=== PATIENT | female | born 1965 | race Caucasian/White ===

== ENCOUNTER → 2017-10-03 | Outpatient (CLI) | payer BC ==
[~2017-10-03] VITALS: Ht 165.1 cm; Wt 77.1 kg
[~2017-10-03] MED LIST: ADVIL200 MG PO; VITAMIN D-32000 UNI2 PO; WOMEN'S DAILY1 EAC4 PO
== END | disposition home or self-care (01) ==
LOC: AMB 08:00
PROC: 0DJD8ZZ Inspection of Lower Intestinal Tract, Via Natural or Artificial Opening Endoscopic (ICD-10-PCS; principal; 2017-10-03)
DX: Z12.11 Encounter for screening for malignant neoplasm of colon (principal); R01.1 Cardiac murmur, unspecified